=== PATIENT | male | born 1990 | race Caucasian/White ===

== ENCOUNTER 2021-11-15 07:40 | Emergency (ER) | payer SELFPAY ==
[~2021-11-15] VITALS: Ht 172.7 cm; Wt 75.0 kg
[2021-11-15] MEDS ORDERED: SULF1TAB48 MT (08:48)
[2021-11-15 09:19] VITALS: BP 113/66
== END 2021-11-15 09:19 | disposition home or self-care (01) ==
LOC: ER 07:40
DX: L08.9 Local infection of the skin and subcutaneous tissue, unspecified (principal); F19.10 Other psychoactive substance abuse, uncomplicated; F17.210 Nicotine dependence, cigarettes, uncomplicated; Z71.6 Tobacco abuse counseling; F41.9 Anxiety disorder, unspecified; F98.8 Other specified behavioral and emotional disorders with onset usually occurring in childhood and adolescence; F43.10 Post-traumatic stress disorder, unspecified
CPT/HCPCS: 99283